=== PATIENT | female | born 1955 | race African-American/Black ===

== ENCOUNTER 2018-03-11 16:27 | Inpatient (IN) | payer OTHER ==
[~2018-03-11] VITALS: Ht 165.1 cm; Wt 72.6 kg
[2018-03-11] VITALS (7 sets, daily range): BP systolic 124–136; BP diastolic 77–88; BMI 26.6
[2018-03-11] MEDS ORDERED: VERELAN360 MG PO (16:34)
[2018-03-11] MEDS ORDERED: PREDNISONE5 MG PO (16:35)
[2018-03-11] MEDS ORDERED: HCTZ25 MG PO (16:35)
[2018-03-12] VITALS (16 sets, daily range): BP systolic 108–126; BP diastolic 74–91; Ht 165.1 cm; Wt 72.6 kg
[2018-03-12 05:57] LABS: BASOPHILS 0.1 % (0-2); EOSINOPHILS 0.1 % (0-7); HEMATOCRIT 29.5 % (36.0-48.0); HEMOGLOBIN 10.5 g/dL (12-16); IMMATURE GRANULOCYTES 1.8 % (0-5); LYMPHOCYTES 6.5 % (15-50); MCH 31.5 pg (26.0-34.0); MCHC 35.6 g/dL (31.0-37.0); MCV 88.6 fL (80.0-100.0); MEAN PLATELET VOLUME 9.7 fL (7.4-10.4); MONOCYTES 7.8 % (2-11); NEUTROPHILS 83.7 % (40-80); PLATELET COUNT 296 10x3/uL (130-400); RBC 3.33 10x6/uL (4.00-5.40); RDW 13.3 % (11.5-14.5); WBC 7.1 10x3/uL (4.8-10.8)
[2018-03-12 06:56] LABS: ALBUMIN 1.6 g/dL (3.4-5.0); ALKALINE PHOSPHATASE 59 U/L (46-116); ALT (SGPT) 25 U/L (10-68); BILIRUBIN - TOTAL 1.87 mg/dL (0.2-1.3); CALC OSMOLALITY 274 mosm/kg (275-300); CARBON DIOXIDE 21.8 mmol/L (21.0-32.0); CHLORIDE - SERUM 92 mmol/L (98-107); CREATININE - SERUM 3.6 mg/dL (0.6-1.3); GLUCOSE 127 mg/dL (74-106); MAGNESIUM - SERUM 1.7 mg/dL (1.8-2.4); PHOSPHOROUS 7.4 mg/dL (2.5-4.9); POTASSIUM - SERUM 4.2 mmol/L (3.5-5.1); PROTEIN - SERUM 5.7 g/dL (6.4-8.2); SODIUM 129 mmol/L (136-145); TROPONIN-I < 0.017 ng/mL (0.000-0.060); UREA NITROGEN 52 mg/dL (7-18); eGFR NON AFRICAN AMERICAN 14 mL/min (90-120)
[2018-03-13] VITALS: BP 121/73
[2018-03-13 04:00] VITALS: BP 132/75
[2018-03-13 07:43] VITALS: BP 131/69
[2018-03-13 08:44] LABS: ANION GAP 11.9 mmol/L (8-16); CALCIUM 7.6 mg/dL (8.5-10.1); CARBON DIOXIDE 26.7 mmol/L (21.0-32.0); POTASSIUM - SERUM 3.6 mmol/L (3.5-5.1)
[2018-03-13 08:48] LABS: CREATININE - SERUM 1.9 mg/dL (0.6-1.3); MAGNESIUM - SERUM 2.4 mg/dL (1.8-2.4); PHOSPHOROUS 2.8 mg/dL (2.5-4.9)
[2018-03-13 10:54] LABS: BASOPHILS 0.3 % (0-2); EOSINOPHILS 0 % (0-7); HEMATOCRIT 20.8 % (36.0-48.0); IMMATURE GRANULOCYTES 2.5 % (0-5); LYMPHOCYTES 6.6 % (15-50); MCH 31.4 pg (26.0-34.0); MCHC 36.1 g/dL (31.0-37.0); MEAN PLATELET VOLUME 9.4 fL (7.4-10.4); MONOCYTES 11.3 % (2-11); NEUTROPHILS 79.3 % (40-80); RBC 2.39 10x6/uL (4.00-5.40); WBC 7.1 10x3/uL (4.8-10.8)
[2018-03-13 10:55] LABS: HEMOGLOBIN 7.5 g/dL (12-16); PLATELET COUNT 214 10x3/uL (130-400)
[2018-03-13 11:22] VITALS: BP 121/65
[2018-03-13 15:44] VITALS: BP 116/65
[2018-03-13 20:00] VITALS: BP 122/60
[2018-03-14] VITALS: BP 126/62
[2018-03-14 04:00] VITALS: BP 126/63
[2018-03-14 07:37] VITALS: BP 137/68
[2018-03-14 08:42] LABS: BASOPHILS 0.5 % (0-2); EOSINOPHILS 0 % (0-7); IMMATURE GRANULOCYTES 8.3 % (0-5); LYMPHOCYTES 8.3 % (15-50); MCH 29.9 pg (26.0-34.0); MCHC 34.7 g/dL (31.0-37.0); MCV 86.2 fL (80.0-100.0); MONOCYTES 6.6 % (2-11); NEUTROPHILS 76.3 % (40-80); PLATELET COUNT 215 10x3/uL (130-400); RDW 14.6 % (11.5-14.5)
[2018-03-14 08:57] LABS: HEMATOCRIT 26.8 % (36.0-48.0); HEMOGLOBIN 9.3 g/dL (12-16); RBC 3.11 10x6/uL (4.00-5.40); WBC 11.8 10x3/uL (4.8-10.8)
[2018-03-14 09:00] LABS: ALBUMIN 1.5 g/dL (3.4-5.0); ANION GAP 12.7 mmol/L (8-16); BILIRUBIN - TOTAL 0.93 mg/dL (0.2-1.3); CALCIUM 8.2 mg/dL (8.5-10.1); CARBON DIOXIDE 26.4 mmol/L (21.0-32.0); MAGNESIUM - SERUM 2.1 mg/dL (1.8-2.4); POTASSIUM - SERUM 4.1 mmol/L (3.5-5.1); PROTEIN - SERUM 5.5 g/dL (6.4-8.2)
[2018-03-14 09:03] LABS: CREATININE - SERUM 1.1 mg/dL (0.6-1.3); PHOSPHOROUS 1.6 mg/dL (2.5-4.9)
[2018-03-14 10:57] VITALS: BP 129/75
[2018-03-14 16:36] VITALS: BP 110/63
[2018-03-14 19:52] VITALS: BP 122/73
[2018-03-15 05:26] VITALS: BP 144/83
[2018-03-15 07:04] LABS: BASOPHILS 0.7 % (0-2); EOSINOPHILS 0.1 % (0-7); HEMATOCRIT 26.9 % (36.0-48.0); HEMOGLOBIN 9.1 g/dL (12-16); IMMATURE GRANULOCYTES 13.7 % (0-5); LYMPHOCYTES 10.8 % (15-50); MCH 29.5 pg (26.0-34.0); MCHC 33.8 g/dL (31.0-37.0); MCV 87.3 fL (80.0-100.0); MEAN PLATELET VOLUME 10.2 fL (7.4-10.4); MONOCYTES 7.7 % (2-11); PLATELET COUNT 233 10x3/uL (130-400); RBC 3.08 10x6/uL (4.00-5.40); RDW 16.2 % (11.5-14.5)
[2018-03-15 07:10] LABS: WBC 14.9 10x3/uL (4.8-10.8)
[2018-03-15 07:24] LABS: ALBUMIN 1.5 g/dL (3.4-5.0); ANION GAP 10.6 mmol/L (8-16); BILIRUBIN - TOTAL 0.6 mg/dL (0.2-1.3); CARBON DIOXIDE 26.5 mmol/L (21.0-32.0); CREATININE - SERUM 0.9 mg/dL (0.6-1.3); MAGNESIUM - SERUM 1.9 mg/dL (1.8-2.4); POTASSIUM - SERUM 4.1 mmol/L (3.5-5.1); PROTEIN - SERUM 5.3 g/dL (6.4-8.2)
[2018-03-15 07:25] LABS: PHOSPHOROUS 1.5 mg/dL (2.5-4.9)
[2018-03-15 07:57] VITALS: BP 140/71; BP 155/92
[2018-03-15 11:30] VITALS: BP 158/89
[2018-03-15 18:12] VITALS: BP 142/72
[2018-03-15 21:06] VITALS: BP 144/70
[2018-03-16 05:34] LABS: BASOPHILS 0.7 % (0-2); EOSINOPHILS 0.2 % (0-7); HEMATOCRIT 29.5 % (36.0-48.0); HEMOGLOBIN 9.9 g/dL (12-16); IMMATURE GRANULOCYTES 16.4 % (0-5); LYMPHOCYTES 7.9 % (15-50); MCH 29.6 pg (26.0-34.0); MCHC 33.6 g/dL (31.0-37.0); MCV 88.3 fL (80.0-100.0); MEAN PLATELET VOLUME 10.3 fL (7.4-10.4); MONOCYTES 7.1 % (2-11); NEUTROPHILS 67.7 % (40-80); PLATELET COUNT 274 10x3/uL (130-400); RBC 3.34 10x6/uL (4.00-5.40); RDW 16.2 % (11.5-14.5); WBC 22.8 10x3/uL (4.8-10.8)
[2018-03-16 05:39] VITALS: BP 160/82
[2018-03-16 05:49] LABS: ALBUMIN 1.6 g/dL (3.4-5.0); ALKALINE PHOSPHATASE 68 U/L (46-116); ALT (SGPT) 22 U/L (10-68); BILIRUBIN - TOTAL 0.68 mg/dL (0.2-1.3); CALC OSMOLALITY 285 mosm/kg (275-300); CALCIUM 7.9 mg/dL (8.5-10.1); CARBON DIOXIDE 25.5 mmol/L (21.0-32.0); CHLORIDE - SERUM 106 mmol/L (98-107); CREATININE - SERUM 0.8 mg/dL (0.6-1.3); GLUCOSE 154 mg/dL (74-106); MAGNESIUM - SERUM 1.7 mg/dL (1.8-2.4); POTASSIUM - SERUM 3.8 mmol/L (3.5-5.1); PROTEIN - SERUM 5.3 g/dL (6.4-8.2); SODIUM 139 mmol/L (136-145); UREA NITROGEN 27 mg/dL (7-18); eGFR NON AFRICAN AMERICAN 77 mL/min (90-120)
[2018-03-16 06:16] LABS: PHOSPHOROUS 1.5 mg/dL (2.5-4.9)
[2018-03-16 07:22] VITALS: BP 110/74
[2018-03-16 11:10] VITALS: BP 139/76
[2018-03-16 15:25] VITALS: BP 115/72
[2018-03-16 20:40] VITALS: BP 123/81
[2018-03-17 06:19] LABS: HEMATOCRIT 30.9 % (36.0-48.0); HEMOGLOBIN 10.5 g/dL (12-16); MCV 88.3 fL (80.0-100.0); MEAN PLATELET VOLUME 10.8 fL (7.4-10.4); PLATELET COUNT 323 10x3/uL (130-400); RDW 15.7 % (11.5-14.5)
[2018-03-17 06:49] LABS: ALBUMIN 1.6 g/dL (3.4-5.0); ALKALINE PHOSPHATASE 70 U/L (46-116); ALT (SGPT) 19 U/L (10-68); BILIRUBIN - TOTAL 0.56 mg/dL (0.2-1.3); CALC OSMOLALITY 281 mosm/kg (275-300); CALCIUM 7.5 mg/dL (8.5-10.1); CARBON DIOXIDE 26.3 mmol/L (21.0-32.0); CHLORIDE - SERUM 105 mmol/L (98-107); CREATININE - SERUM 0.8 mg/dL (0.6-1.3); GLUCOSE 111 mg/dL (74-106); MAGNESIUM - SERUM 1.8 mg/dL (1.8-2.4); POTASSIUM - SERUM 3.9 mmol/L (3.5-5.1); PROTEIN - SERUM 5.1 g/dL (6.4-8.2); SODIUM 138 mmol/L (136-145); UREA NITROGEN 26 mg/dL (7-18); eGFR NON AFRICAN AMERICAN 77 mL/min (90-120)
[2018-03-17 06:56] LABS: PHOSPHOROUS 2.9 mg/dL (2.5-4.9)
[2018-03-17 07:12] LABS: LYMPHOCYTES 20 % (15-50); MONOCYTES 1 % (2-11); NEUTROPHILS 73 % (40-80); PLATELET ESTIMATE NORMAL; PLATELET MORPHOLOGY GIANT PLTS PRESENT
[2018-03-17 07:25] VITALS: BP 147/93
[2018-03-17 11:24] VITALS: BP 141/72
[2018-03-17 14:56] VITALS: BP 160/79
[2018-03-17 20:00] VITALS: BP 137/75
[2018-03-18 05:39] LABS: BASOPHILS 0.2 % (0-2); EOSINOPHILS 0 % (0-7); HEMATOCRIT 29.3 % (36.0-48.0); IMMATURE GRANULOCYTES 9.2 % (0-5); LYMPHOCYTES 7.2 % (15-50); MCHC 34.1 g/dL (31.0-37.0); MEAN PLATELET VOLUME 10.3 fL (7.4-10.4); MONOCYTES 4.9 % (2-11); NEUTROPHILS 78.5 % (40-80); PLATELET COUNT 307 10x3/uL (130-400); RBC 3.33 10x6/uL (4.00-5.40); RDW 15.5 % (11.5-14.5); WBC 22.3 10x3/uL (4.8-10.8)
[2018-03-18 06:29] LABS: ALBUMIN 1.5 g/dL (3.4-5.0); ALKALINE PHOSPHATASE 59 U/L (46-116); ALT (SGPT) 17 U/L (10-68); CALC OSMOLALITY 285 mosm/kg (275-300); CALCIUM 7.6 mg/dL (8.5-10.1); CHLORIDE - SERUM 108 mmol/L (98-107); CREATININE - SERUM 0.7 mg/dL (0.6-1.3); GLUCOSE 125 mg/dL (74-106); MAGNESIUM - SERUM 1.7 mg/dL (1.8-2.4); PHOSPHOROUS 3.1 mg/dL (2.5-4.9); POTASSIUM - SERUM 3.9 mmol/L (3.5-5.1); PROTEIN - SERUM 4.7 g/dL (6.4-8.2); SODIUM 140 mmol/L (136-145); UREA NITROGEN 30 mg/dL (7-18); eGFR NON AFRICAN AMERICAN 90 mL/min (90-120)
[2018-03-18 07:16] VITALS: BP 148/68
[2018-03-18 11:14] VITALS: BP 143/74
[2018-03-18 15:06] VITALS: BP 155/74
[2018-03-18 15:21] LABS: AEROBE ID Final report (())
[2018-03-18] MEDS ORDERED: LEVAQUIN750 MG PO (16:29)
[2018-03-18] MEDS ORDERED: FLAGYL500 MG PO (16:29)
[2018-03-19 17:13] LABS: AEROBE ID Final report (())
[2018-03-22 17:07] LABS: AEROBE ID Final report (()); RESULT 1 Clostridium tertium (())
[2018-03-23 19:10] LABS: AEROBE ID Final report (())
== END 2018-03-18 17:47 | disposition home health service (06) | DRG 329 ==
LOC: D.ER 16:27 → D.M3 17:26 → D.ICU 17:26 → D.EDHOLD 17:26 → D.SDCHOLD 18:00 → D.ICU 21:25 → D.M3 03-12 22:14
PROVIDERS: Family Medicine; Surgery
PROC: 0DBE0ZZ Excision of Large Intestine, Open Approach (ICD-10-PCS; principal; 2018-03-11 15:30)
PROC: 0DNW0ZZ Release Peritoneum, Open Approach (ICD-10-PCS; 2018-03-11 15:30)
DX: K63.1 Perforation of intestine (nontraumatic) (principal); J18.9 Pneumonia, unspecified organism; D62 Acute posthemorrhagic anemia; I10 Essential (primary) hypertension; Z87.891 Personal history of nicotine dependence